=== PATIENT | male | born 1970 | race Caucasian/White ===

== ENCOUNTER 2021-05-18 06:26 | Emergency (ER) | payer SELFPAY ==
--- NOTE | 2021-05-18 06:55 | ER ---
Nurse's Notes [facility] Name: Jaya Castañeda Age: 50 yrs Sex: Male : 1970 Arrival Date: 05/18/2021 Time: 06:28 Bed Waiting Private MD: Diagnosis: Hordeolum externum left upper eyelid Presentation: 05/18 06:41 Chief complaint: Patient states: he was sent home from work this morning because they bb thought he had pink eye pt has no discharge the sclera is white there is small amount of edema to left upper lid along lid margin. Coronavirus screen: At this time, the client does not indicate any symptoms associated with coronavirus-19. Ebola Screen: No symptoms or risks identified at this time. Initial Sepsis Screen: Does the patient meet any 2 criteria? No. Patient's initial sepsis screen is negative. Does the patient have a suspected source of infection? No. Patient's initial sepsis screen is negative. Risk Assessment: Do you want to hurt yourself or someone else? Patient reports no desire to harm self or others. Onset of symptoms was May 17, 2021. 06:41 Method Of Arrival: Ambulatory 06:41 Acuity: MARY 5 bb 07:05 Note pt verbalized understanding of and agrees to plan of care discharge instructions bb given pt ambulated with steady gait to exit. Work note given. Triage Assessment: 06:43 General: Appears in no apparent distress. distressed, Behavior is. Pain: Denies pain. bb EENT: left upper lid margin slightly edematous. Neuro: Level of Consciousness is awake, alert, obeys commands, Oriented to person, place, time, situation. Cardiovascular: Capillary refill < 3 seconds Patient's skin is warm and dry. Respiratory: Respiratory effort is even, unlabored, Respiratory pattern is regular. GI: No signs and/or symptoms were reported involving the gastrointestinal system. Derm: Skin is pink, warm \T\ dry. Musculoskeletal: Circulation, motion, and sensation intact. Historical: - Allergies: 06:43 No Known Allergies; bb - Home Meds: 06:43 Lisinopril Oral [Active]; bb - PMHx: 06:43 Hypertensive disorder; bb - PSHx: 06:43 None; bb - Immunization history:: Adult Immunizations up to date, Client reports receiving the 2nd dose of the Covid vaccine. - Social history:: Smoking status: Patient denies any tobacco usage or history of. Patient uses alcohol, occasionally. Patient/guardian denies using street drugs. Screenin:46 Abuse screen: Denies threats or abuse. Nutritional screening: No deficits noted. bb Tuberculosis screening: No symptoms or risk factors identified. Fall Risk None identified. Assessment: 06:46 Reassessment: El SCOTT in triage for pt evaluation pt to be discharged home with bb work note. Pt verbalized understanding of and agrees to plan of care discharge instructions given pt ambulated with steady gait to exit. Vital Signs: 06:41 BP 144 / 94; Pulse 85; Resp 16 S; Temp 98.3(O); Pulse Ox 98% on R/A; Weight 98.43 kg bb (R); Height 5 ft. 6 in. (167.64 cm) (R); Pain 0/10; 06:41 Body Mass Index 35.02 (98.43 kg, 167.64 cm) bb ED Course: 06:28 Patient arrived in ED. wm 06:43 Triage completed. bb 06:43 Arm band placed on. bb 06:46 Patient has correct armband on for positive identification. bb 06:46 No provider procedures requiring assistance completed. Patient did not have IV access bb during this emergency room visit. 06:54 [facility]in [facility] jr8 06:54 Yassine Wolfe MD is Attending Physician. jr8 06:54 Isatu Segundo MD is Referral Physician. jr8 Administered Medications: No medications were administered Outcome: 06:55 Discharge ordered by . jr8 07:07 Discharged to home ambulatory. bb 07:07 Condition: stable 07:07 Discharge instructions given to patient, Instructed on discharge instructions, follow up and referral plans. Demonstrated understanding of instructions, follow-up care. 07:07 Patient left the ED. bb Signatures: Estella Guy RN RN bb El Rubin PA PA jr8 Yolanda Gardiner Corrections: (The following items were deleted from the chart) 07:07 06:46 Reassessment: El SCOTT in triage for pt evaluation pt to be discharged home bb with RX and work note. Pt verbalized understanding of and agrees to plan of care discharge instructions given pt ambulated with steady gait to exit. bb
--- NOTE | 2021-05-18 06:55 | EDPHYS ---
Physician Documentation [facility] Name: Jaya Castañeda Age: 50 yrs Sex: Male : 1970 Arrival Date: 05/18/2021 Time: 06:28 Bed Waiting Private MD: ED Physician Yassine Wolfe HPI: 05/18 06:59 This 50 yrs old Male presents to ER via Ambulatory with complaints of Eye jr8 Pain. 06:59 Onset: The symptoms/episode began/occurred acutely, today. Duration: the symptoms are jr8 continuous. Aggravated by nothing. Alleviated by nothing. Associated signs and symptoms: Pertinent positives: None. Patient wears glasses. Severity of symptoms: At their worst the symptoms were mild in the emergency department the symptoms are unchanged. The patient has not experienced similar symptoms in the past. The patient has not recently seen a physician. Patient stated that while getting ready for his morning class for work as [employer] had pulled him aside and asked about his left eye. Patient stated that he had not really felt anything until the head pointed out. Stated that they were worried he had pinkeye and was sent to the emergency room for further evaluation. Historical: - Allergies: 06:43 No Known Allergies; bb - Home Meds: 06:43 Lisinopril Oral [Active]; bb - PMHx: 06:43 Hypertensive disorder; bb - PSHx: 06:43 None; bb - Immunization history:: Adult Immunizations up to date, Client reports receiving the 2nd dose of the Covid vaccine. - Social history:: Smoking status: Patient denies any tobacco usage or history of. Patient uses alcohol, occasionally. Patient/guardian denies using street drugs. ROS: 06:59 Constitutional: Negative for fever, chills, and weight loss, Cardiovascular: Negative jr8 for chest pain, palpitations, and edema, Respiratory: Negative for shortness of breath, cough, wheezing, and pleuritic chest pain, Skin: Negative for injury, rash, and discoloration, Neuro: Negative for headache, weakness, numbness, tingling, and seizure. 06:59 Eyes: Positive for redness, swelling, of the left upper eyelid. 06:59 All other systems are negative. Exam: 06:59 Constitutional: This is a well developed, well nourished patient who is awake, alert, jr8 and in no acute distress. Head/Face: Normocephalic, atraumatic. ENT: Nares patent. No nasal discharge, no septal abnormalities noted. Tympanic membranes are normal and external auditory canals are clear. Oropharynx with no redness, swelling, or masses, exudates, or evidence of obstruction, uvula midline. Mucous membranes moist. Cardiovascular: Regular rate and rhythm with a normal S1 and S2. No gallops, murmurs, or rubs. Normal PMI, no JVD. No pulse deficits. Respiratory: Lungs have equal breath sounds bilaterally, clear to auscultation and percussion. No rales, rhonchi or wheezes noted. No increased work of breathing, no retractions or nasal flaring. Skin: Warm, dry with normal turgor. Normal color with no rashes, no lesions, and no evidence of cellulitis. MS/ Extremity: Pulses equal, no cyanosis. Neurovascular intact. Full, normal range of motion. Neuro: Awake and alert, GCS 15, oriented to person, place, time, and situation. Motor strength 5/5 in all extremities. Sensory grossly intact. 06:59 Eyes: Periorbital structures: appear normal, Pupils: equal, round, and reactive to light and accomodation, Extraocular movements: intact throughout, Conjunctiva: normal, Corneas: are normal, Sclera: no appreciated abnormality, Lids and lashes: stye, on the left lid, Examination of the other eye reveals no obvious gross abnormality. Vital Signs: 06:41 BP 144 / 94; Pulse 85; Resp 16 S; Temp 98.3(O); Pulse Ox 98% on R/A; Weight 98.43 kg bb (R); Height 5 ft. 6 in. (167.64 cm) (R); Pain 0/10; 06:41 Body Mass Index 35.02 (98.43 kg, 167.64 cm) bb MDM: 06:54 Data reviewed: vital signs, nurses notes, and as a result, I will discharge patient. brown Data interpreted: Pulse oximetry: on room air is 98 %. Interpretation: normal. Counseling: I had a detailed discussion with the patient and/or guardian regarding: the historical points, exam findings, and any diagnostic results supporting the discharge/admit diagnosis, the need for outpatient follow up, an opthalmologist, to return to the emergency department if symptoms worsen or persist or if there are any questions or concerns that arise at home. 06:55 Patient medically screened. jr8 Administered Medications: No medications were administered Disposition Summary: 05/18/21 06:55 Discharge Ordered Location: Home jr8 Problem: new jr8 Symptoms: have improved jr8 Condition: Stable jr8 Diagnosis - Hordeolum externum left upper eyelid jr8 Followup: jr8 - With: Isatu Segundo MD - When: As needed - Reason: Recheck today's complaints, Continuance of care, Re-evaluation by your physician Discharge Instructions: - Discharge Summary Sheet jr8 - Stye jr8 Forms: - Medication Reconciliation Form jr8 - Thank You Letter jr8 - Antibiotic Education jr8 - Work release form jr8 - Prescription Opioid Use jr8 Addendum: 05/19/2021 19:05 Co-signature as Attending Physician, Yassine Wolfe MD. p Signatures: Yassine Wolfe MD MD pkl Ballard, Brenda, RN RN El Doherty PA PA jr8
[2021-05-18 07:17] VITALS: BP 144/94; TEMP 98.3; O2SAT 98
== END 2021-05-18 07:07 | disposition home or self-care (01) ==
LOC: ER 06:26
DX: H00.014 Hordeolum externum left upper eyelid (principal); I10 Essential (primary) hypertension
CPT/HCPCS: 99281

== ENCOUNTER 2022-04-02 09:18 | Emergency (ER) | payer OTHER, SELFPAY ==
[2022-04-02] MEDS ORDERED: NA CHLORIDE 0.9% 1,000 ML ONE (09:38)
[2022-04-02 09:43] LABS: Absolute Lymphocytes (CBC) 1.6 K/uL (0.7-4.9); Hematocrit 40.2 % (39.6-49.0); Lymphocytes % 20.9 % (15.3-44.8); MPV 6.9 fL (7.6-11.3); RBC Red Blood Cell Count 4.54 M/uL (4.33-5.43)
[2022-04-02 09:45] LABS: Protime INR 0.95
[2022-04-02 09:55] LABS: Urine Blood Trace-intact (Negative); Urine Glucose Negative (Negative); Urine Protein Negative (Negative)
[2022-04-02 10:02] LABS: ALT/SGPT 30 U/L (12-78); AST/SGOT 16 U/L (15-37); Albumin 3.7 g/dL (3.4-5.0); Alkaline Phosphatase 96 U/L (45-117); BUN Blood Urea Nitrogen 17 mg/dL (7-18); Bicarbonate 23 mmol/L (21-32); Bilirubin Total 0.2 mg/dL (0.2-1.0); Glomerular Filtration Rate 106 ml/min (=/>90); Glucose Level 125 mg/dL (74-106); Magnesium 1.9 mg/dL (1.8-2.4); NT PRO-BNP 47 pg/mL (<125); Potassium 3.9 mmol/L (3.5-5.1); Protein, Total 7.4 g/dL (6.4-8.2); Sodium Level 137 mmol/L (136-145)
[2022-04-02 10:09] LABS: Bilirubin Direct < 0.1 mg/dL (0-0.2); Troponin High Sensitivity < 3.0 pg/mL (<58.9)
--- NOTE | 2022-04-02 10:14 | RAD REPORT ---
EXAM DESCRIPTION: RAD - Chest Single View - 04/02/2022 9:49 am CLINICAL HISTORY: COUGH COMPARISON: Portable December 2013 TECHNIQUE: AP portable chest image was obtained 04/02/2022 9:49 am . FINDINGS: No focal lung parenchymal process. Under penetrated technique and prominent overlying soft tissues accentuate all chest findings. Minimal interstitial edema or infiltrate could be masked. Hea rt and vasculature are normal. No measurable pleural effusion and no pneumothorax. No acute bony abno rmality seen. No acute aortic findings suspected. IMPRESSION: No focal lung parenchymal process seen. Prominent baseline interstitial pattern could mask early interstitial edema or infiltrate.
--- NOTE | 2022-04-02 10:29 | ER ---
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 the pt reported that he had the same feeling yesterday. denies pain. 12 lead was normal sinus. 18 G started to his left AC and LR was started. his blood pressure was elevated at 160/100 and we gave a nitro at 0903.". Coronavirus screen: At this time, the client does not indicate any symptoms associated with coronavirus-19. Ebola Screen: No symptoms or risks identified at this time. Initial Sepsis Screen: Does the patient meet any 2 criteria? No. Patient's initial sepsis screen is negative. Does the patient have a suspected source of infection? No. Patient's initial sepsis screen is negative. Risk Assessment: Do you want to hurt yourself or someone else? Patient reports no desire to harm self or others. Onset of symptoms was April 01, 2022. 09:21 Method Of Arrival: EMS: [facility] jd3 09:21 Acuity: MARY 3 jd3 Historical: - Allergies: 09:26 No Known Allergies; jd3 - Home Meds: 09:26 lisinopril Oral [Active]; jd3 - PMHx: 09:26 Hypertensive disorder; jd3 - PSHx: 09:26 right hand; jd3 - Immunization history:: Adult Immunizations up to date, Client reports receiving the 2nd dose of the Covid vaccine. - Social history:: Smoking status: Patient reports the use of cigarette tobacco products, denies chronic smoking, but will smoke occasionally. - Family history:: not pertinent. Screenin:29 Abuse screen: Denies threats or abuse. Nutritional screening: No deficits noted. jd3 Tuberculosis screening: No symptoms or risk factors identified. Fall Risk Ambulatory Aid- None/Bed Rest/Nurse Assist (0 pts). Gait- Normal/Bed Rest/Wheelchair (0 pts) Mental Status- Oriented to own ability (0 pts). Total Laws Fall Scale indicates No Risk (0-24 pts). Assessment: 09:27 General: Appears in no apparent distress. comfortable, Behavior is calm, cooperative, jd3 appropriate for age. Pain: Denies pain. Neuro: Arrington Agitation-Sedation Scale (RASS): 0 - Alert and Calm Level of Consciousness is awake, alert, obeys commands, Oriented to person, place, time, situation, Reports dizziness, since yesterday weakness general weakness since yesterday. Cardiovascular: Heart tones present Capillary refill < 3 seconds Patient's skin is warm and dry. Rhythm is regular. Respiratory: Airway is patent Respiratory effort is even, unlabored, Respiratory pattern is regular, symmetrical, Breath sounds are clear bilaterally. Denies cough, shortness of breath. GI: Reports nausea, Patient currently denies abdominal pain. : No signs and/or symptoms were reported regarding the genitourinary system. EENT: No signs and/or symptoms were reported regarding the EENT system. Derm: Skin is intact, Skin is dry, Skin is normal, Skin temperature is warm. Musculoskeletal: Circulation, motion, and sensation intact. Range of motion: intact in all extremities. 10:20 Reassessment: Patient appears in no apparent distress at this time. Patient and/or jd3 family updated on plan of care and expected duration. Pain level reassessed. Patient is alert, oriented x 3, equal unlabored respirations, skin warm/dry/pink. 11:18 Reassessment: Patient appears in no apparent distress at this time. Patient and/or jd3 family updated on plan of care and expected duration. Pain level reassessed. Patient is alert, oriented x 3, equal unlabored respirations, skin warm/dry/pink. Patient states feeling better. Vital Signs: 09:26 BP 143 / 69; Pulse 101; Resp 17 S; Temp 98.2(TE); Pulse Ox 99% on R/A; Weight 97.52 kg jd3 (R); Height 5 ft. 5 in. (165.10 cm) (R); Pain 0/10; 09:49 BP 119 / 89 Standing; Pulse 100; jd3 09:49 BP 139 / 92 Sitting; Pulse 90; jd3 09:49 BP 131 / 86 Supine; Pulse 94; jd3 11:19 BP 111 / 80; Pulse 90; Resp 16 S; Pulse Ox 99% on R/A; jd3 09:26 Body Mass Index 35.78 (97.52 kg, 165.10 cm) jd3 ED Course: 09:20 Patient arrived in ED. jd3 09:20 Yong Pearson, RN is Primary Nurse. jd3 09:21 Jamar Montgomery MD is Attending Physician. kina 09:26 Triage completed. jd3 09:27 Arm band placed on. EKG completed in triage. Results shown to MD. jd3 09:27 EKG done, by ED staff, reviewed by Jamar Montgomery MD. em1 09:29 Patient has correct armband on for positive identification. Bed in low position. Call jd3 light in reach. Side rails up X2. Client placed on continuous cardiac and pulse oximetry monitoring. NIBP monitoring applied. lumber sticker on. Pulse ox on. NIBP on. 09:29 Maintain EMS IV. Dressing intact. Good blood return noted. Site clean \\T\\ dry. Gauge \\T\\ alysia 3 site: 18 G left AC. 09:33 Troponin HS Sent. mb7 09:33 LFT's Sent. mb7 09:33 CBC with Diff Sent. mb7 09:33 NT PRO-BNP Sent. mb7 09:33 Magnesium Sent. mb7 09:33 PT-INR Sent. mb7 09:34 Basic Metabolic Panel Sent. mb7 09:51 XRAY Chest (1 view) In Process Unspecified. EDMS 10:27 Xavier Rachel MD is Referral Physician. kina 11:18 No provider procedures requiring assistance completed. IV discontinued, intact, jd3 bleeding controlled, No redness/swelling at site. Pressure dressing applied. Administered Medications: 09:34 Drug: NS 0.9% 1000 ml Route: IV; Rate: 125 ml/hr; Site: left antecubital; jd3 11:20 Follow up: Response: No adverse reaction; IV Status: Order to discontinue infusion; pt jd3 discharged Medication: 09:29 VIS not applicable for this client. jd3 Intake: Outcome: 10:28 Discharge ordered by . kina 11:19 Discharged to home ambulatory, with friend. jd3 11:19 Condition: stable 11:19 Discharge instructions given to patient, Instructed on discharge instructions, follow up and referral plans. Demonstrated understanding of instructions, follow-up care. 11:20 Patient left the ED. jd3 Signatures: Dispatcher [employer] EDMS Ulises, Jamar, MD MD kina Roman, Samir em1 Yong Pearson RN RN jd3 Josie Shannon 7
--- NOTE | 2022-04-02 10:29 | EDPHYS ---
Physician Documentation [facility] Name: Jaya Castañeda Age: 51 yrs Sex: Male : 1970 Arrival Date: 04/02/2022 Time: : Bed 7 Private MD: ED Physician Jamar Montgomery HPI: 04/02 09:49 This 51 yrs old Male presents to ER via EMS with complaints of dizziness and kina bp elevated. 09:49 The patient presents with dizziness, generalized weakness. Onset: The symptoms/episode kina began/occurred yesterday. Context: occurred at home, occurred while the patient was at rest, standing. Modifying factors: The symptoms are alleviated by nothing, the symptoms are aggravated by nothing. Associated signs and symptoms: The patient has no apparent associated signs or symptoms. Severity of symptoms: At their worst the symptoms were mild in the emergency department the symptoms are unchanged. Patient's baseline: Neuro:. The patient has experienced similar episodes in the past, several times. Historical: - Allergies: 09:26 No Known Allergies; jd3 - Home Meds: 09:26 lisinopril Oral [Active]; jd3 - PMHx: 09:26 Hypertensive disorder; jd3 - PSHx: 09:26 right hand; jd3 - Immunization history:: Adult Immunizations up to date, Client reports receiving the 2nd dose of the Covid vaccine. - Social history:: Smoking status: Patient reports the use of cigarette tobacco products, denies chronic smoking, but will smoke occasionally. - Family history:: not pertinent. ROS: 09:49 Constitutional: Negative for fever, chills, and weight loss, Eyes: Negative for injury, kina pain, redness, and discharge, ENT: Negative for injury, pain, and discharge, Neck: Negative for injury, pain, and swelling, Cardiovascular: Negative for chest pain, palpitations, and edema, Respiratory: Negative for shortness of breath, cough, wheezing, and pleuritic chest pain, Abdomen/GI: Negative for abdominal pain, nausea, vomiting, diarrhea, and constipation, Back: Negative for injury and pain, : Negative for injury, bleeding, discharge, and swelling, MS/Extremity: Negative for injury and deformity, Skin: Negative for injury, rash, and discoloration, Neuro: Negative for headache, weakness, numbness, tingling, and seizure, Psych: Negative for depression, anxiety, suicide ideation, homicidal ideation, and hallucinations, Allergy/Immunology: Negative for hives, rash, and allergies, Endocrine: Negative for neck swelling, polydipsia, polyuria, polyphagia, and marked weight changes, Hematologic/Lymphatic: Negative for swollen nodes, abnormal bleeding, and unusual bruising. Exam: 09:49 Constitutional: This is a well developed, well nourished patient who is awake, alert, kina and in no acute distress. Head/Face: Normocephalic, atraumatic. Eyes: Pupils equal round and reactive to light, extra-ocular motions intact. Lids and lashes normal. Conjunctiva and sclera are non-icteric and not injected. Cornea within normal limits. Periorbital areas with no swelling, redness, or edema. ENT: Nares patent. No nasal discharge, no septal abnormalities noted. Tympanic membranes are normal and external auditory canals are clear. Oropharynx with no redness, swelling, or masses, exudates, or evidence of obstruction, uvula midline. Mucous membranes moist. Neck: Trachea midline, no thyromegaly or masses palpated, and no cervical lymphadenopathy. Supple, full range of motion without nuchal rigidity, or vertebral point tenderness. No Meningismus. Chest/axilla: Normal chest wall appearance and motion. Nontender with no deformity. No lesions are appreciated. Cardiovascular: Regular rate and rhythm with a normal S1 and S2. No gallops, murmurs, or rubs. Normal PMI, no JVD. No pulse deficits. Respiratory: Lungs have equal breath sounds bilaterally, clear to auscultation and percussion. No rales, rhonchi or wheezes noted. No increased work of breathing, no retractions or nasal flaring. Abdomen/GI: Soft, non-tender, with normal bowel sounds. No distension or tympany. No guarding or rebound. No evidence of tenderness throughout. Back: No spinal tenderness. No costovertebral tenderness. Full range of motion. Male : Normal genitalia with no discharge or lesions. Skin: Warm, dry with normal turgor. Normal color with no rashes, no lesions, and no evidence of cellulitis. MS/ Extremity: Pulses equal, no cyanosis. Neurovascular intact. Full, normal range of motion. Neuro: Awake and alert, GCS 15, oriented to person, place, time, and situation. Cranial nerves II-XII grossly intact. Motor strength 5/5 in all extremities. Sensory grossly intact. Cerebellar exam normal. Normal gait. Psych: Awake, alert, with orientation to person, place and time. Behavior, mood, and affect are within normal limits. 09:49 ECG was reviewed by the Attending Physician. Vital Signs: 09:26 BP 143 / 69; Pulse 101; Resp 17 S; Temp 98.2(TE); Pulse Ox 99% on R/A; Weight 97.52 kg jd3 (R); Height 5 ft. 5 in. (165.10 cm) (R); Pain 0/10; 09:49 BP 119 / 89 Standing; Pulse 100; jd3 09:49 BP 139 / 92 Sitting; Pulse 90; jd3 09:49 BP 131 / 86 Supine; Pulse 94; jd3 11:19 BP 111 / 80; Pulse 90; Resp 16 S; Pulse Ox 99% on R/A; jd3 09:26 Body Mass Index 35.78 (97.52 kg, 165.10 cm) jd3 MDM: 09:21 Patient medically screened. kina 09:52 Differential diagnosis: cardiac arrhythmia, generalized weakness, hypovolemia, kina idiopathic dizziness, near-syncope. Data reviewed: vital signs, nurses notes, lab test result(s), EKG, radiologic studies, plain films. Data interpreted: color television console monitor: rate is 94 beats/min, rhythm is normal sinus rhythm, Pulse oximetry: on room air is 99 %. Test interpretation: by ED physician or midlevel provider: ECG, plain radiologic studies. Counseling: I had a detailed discussion with the patient and/or guardian regarding: the historical points, exam findings, and any diagnostic results supporting the discharge/admit diagnosis, lab results, radiology results. 04/02 09:21 Order name: Basic Metabolic Panel; Complete Time: 10: kina 04/02 09:21 Order name: CBC with Diff; Complete Time: : kina 04/02 09:21 Order name: LFT's; Complete Time: : kina 04/02 09:21 Order name: Magnesium; Complete Time: : kina 04/02 09:21 Order name: NT PRO-BNP; Complete Time: 10: kina 04/02 09:21 Order name: PT-INR; Complete Time: : [facility] 04/02 09:21 Order name: Troponin HS; Complete Time: : [facility] 04/02 09:21 Order name: XRAY Chest (1 view); Complete Time: : [facility] 04/02 09:21 Order name: EKG; Complete Time: : [facility] 04/02 09:21 Order name: Cardiac monitoring; Complete Time: : [facility] 04/02 09:21 Order name: EKG - Nurse/Tech; Complete Time: : [facility] 04/02 09:21 Order name: IV Saline Lock; Complete Time: : [facility] 04/02 09:55 Order name: Urine Dipstick-Ancillary; Complete Time: : EDMS 04/02 09:21 Order name: Labs collected and sent; Complete Time: : [facility] 04/02 09:21 Order name: O2 Per Protocol; Complete Time: : [facility] 04/02 09:21 Order name: O2 Sat Monitoring; Complete Time: : [facility] 04/02 09:23 Order name: Orthostatics; Complete Time: 09:49 [facility] 04/02 09:23 Order name: Urine Dipstick-Ancillary (obtain specimen); Complete Time: 09:49 [facility] EC:49 Rate is 85 beats/min. Rhythm is regular. QRS [place] is Normal. CT interval is normal. QRS kina interval is normal. QT interval is normal. No Q waves. T waves are Normal. No ST changes noted. Clinical impression: Normal ECG and No evidence of ischemia. Interpreted by me. Reviewed by me. Administered Medications: 09:34 Drug: NS 0.9% 1000 ml Route: IV; Rate: 125 ml/hr; Site: left antecubital; jd3 11:20 Follow up: Response: No adverse reaction; IV Status: Order to discontinue infusion; pt jd3 discharged Disposition Summary: 04/02/22 10:28 Discharge Ordered Location: Home kina Problem: new kina Symptoms: have improved kina Condition: Stable kina Diagnosis - Dizziness and giddiness kina - Essential (primary) hypertension kina Followup: kina - With: Private Physician - When: 2 - 3 days - Reason: Recheck today's complaints, Continuance of care, Re-evaluation by your physician Followup: kina - With: Xavier Rachel MD - When: 2 - 3 days - Reason: Recheck today's complaints, Re-evaluation by your physician Discharge Instructions: - Discharge Summary Sheet kina - Dizziness kina - Hypertension, Adult kina - Hypertension, Adult, [id number] kina - How to Take Your Blood Pressure, [id number] kina - Aspirin and Your Heart kina - Dizziness, [id number] kina - Managing Your Hypertension kina Forms: - Medication Reconciliation Form kina - Thank You Letter kina - Antibiotic Education kina - Prescription Opioid Use kina Signatures: Dispatcher [employer] EDJamar Mathis MD MD cha Davies, Jonathon RN RN jd3
[2022-04-02 11:27] VITALS: TEMP 98.2; O2SAT 99
[2022-04-02 11:30] VITALS: BP 111/80
--- NOTE | 2022-04-04 07:28 | EKG ---
Test Date: 2022-04-02 Test Time: 09:21:20 Photographer Helper: VELIA MEASUREMENT RESULTS: Intervals: Rate: 85 WI: 136 QRSD: 94 QT: 354 QTc: 421 [place]: P: 48 WI: 136 QRS: -3 T: 28 INTERPRETIVE STATEMENTS: Normal sinus rhythm Incomplete right bundle branch block Borderline ECG Compared to ECG 06/23/2015 09:14:17 No significant changes Electronically Signed On 04-04-22 07:20:00 CDT by Xavier Rachel
== END 2022-04-02 11:20 | disposition home or self-care (01) ==
LOC: ER 09:18
DX: R42 Dizziness and giddiness (principal); I10 Essential (primary) hypertension; Z72.0 Tobacco use
CPT/HCPCS: 36415; 71045; 80048; 80076; 81003; 83735; 83880; 84484; 85025; 85610; 93005; 96360; 96361; 99284; J7030

== ENCOUNTER 2022-04-08 20:46 | Emergency (ER) | payer OTHER, SELFPAY ==
[2022-04-09 00:37] LABS: Protime INR 0.94
[2022-04-09 00:38] LABS: Hematocrit 42.6 % (39.6-49.0); Lymphocytes % 30.3 % (15.3-44.8); MPV 7.4 fL (7.6-11.3); RBC Red Blood Cell Count 4.78 M/uL (4.33-5.43)
[2022-04-09 00:52] LABS: ALT/SGPT 41 U/L (12-78); AST/SGOT 18 U/L (15-37); Albumin 4.2 g/dL (3.4-5.0); Alkaline Phosphatase 122 U/L (45-117); BUN Blood Urea Nitrogen 15 mg/dL (7-18); Bicarbonate 26 mmol/L (21-32); Bilirubin Total 0.2 mg/dL (0.2-1.0); Glomerular Filtration Rate 101 ml/min (=/>90); Glucose Level 123 mg/dL (74-106); Magnesium 2.3 mg/dL (1.8-2.4); Potassium 3.9 mmol/L (3.5-5.1); Protein, Total 8.4 g/dL (6.4-8.2); Sodium Level 138 mmol/L (136-145)
[2022-04-09 01:02] LABS: Bilirubin Direct < 0.1 mg/dL (0-0.2); Troponin High Sensitivity < 3.0 pg/mL (<58.9)
--- NOTE | 2022-04-09 01:52 | ER ---
Nurse's Notes [facility] Name: Jyaa Castañeda Age: 51 yrs Sex: Male : 1970 Arrival Date: 04/08/2022 Time: 20:48 Bed 20 Private MD: Diagnosis: Dizziness and giddiness;Nausea;Headache;Hypertensive heart disease without heart failure Presentation: 04/08 22:15 Chief complaint: Patient states: "I had real bad pressure in my head and I was vc1 nauseous.". Coronavirus screen: Vaccine status: Patient reports receiving the 2nd dose of the covid vaccine. Moderna cough unrelated to allergies, headache, nausea, Client presents with at least one sign or symptom that may indicate coronavirus-19. Standard/surgical mask placed on the client. Provider contacted for isolation considerations. Ebola Screen: No symptoms or risks identified at this time. Initial Sepsis Screen: Does the patient meet any 2 criteria? No. Patient's initial sepsis screen is negative. Does the patient have a suspected source of infection? No. Patient's initial sepsis screen is negative. Risk Assessment: Do you want to hurt yourself or someone else? Patient reports no desire to harm self or others. Onset of symptoms is unknown. 22:15 Method Of Arrival: Ambulatory vc1 22:15 Acuity: MARY 4 vc1 Triage Assessment: 22:18 Headache History: Denies prior headaches. General: Appears in no apparent distress. vc1 uncomfortable, Behavior is calm, cooperative, appropriate for age. Pain: Denies pain. Pain currently is 0 out of 10 on a pain scale. Pain began 2-3 days ago. Also complains of nausea. EENT: No deficits noted. Neuro: Level of Consciousness is awake, alert, obeys commands, Oriented to person, place, time, situation, Appropriate for age Moves all extremities. Gait is steady, Speech is normal, Facial symmetry appears normal, Reports "pressure in head". Cardiovascular: No deficits noted. Respiratory: Airway is patent Respiratory effort is even, unlabored, Respiratory pattern is regular, symmetrical. GI: No signs and/or symptoms were reported involving the gastrointestinal system. : No signs and/or symptoms were reported regarding the genitourinary system. Derm: Skin is intact, is healthy with good turgor, Skin temperature is warm. Musculoskeletal: Circulation, motion, and sensation intact. Range of motion: intact in all extremities. Historical: - Allergies: 22:18 No Known Allergies; vc1 - Home Meds: 22:18 lisinopril Oral [Active]; vc1 - PMHx: 22:18 Hypertensive disorder; vc1 - PSHx: 22:18 right hand; vc1 - Immunization history:: Adult Immunizations up to date, Client reports receiving the 2nd dose of the Covid vaccine. - Social history:: Smoking status: Patient reports the use of cigarette tobacco products, denies chronic smoking, but will smoke occasionally. Screenin:44 Abuse screen: Denies threats or abuse. Nutritional screening: No deficits noted. kl Tuberculosis screening: No symptoms or risk factors identified. Fall Risk None identified. Assessment: 23:42 General: Appears in no apparent distress. well groomed, well developed, well nourished, kl Behavior is calm, cooperative. Pain: Denies pain. Neuro: No deficits noted. Reports dizziness, since off and on since Saturday seen in the ER reports feeling imbalanced at times Pressure in head. Cardiovascular: No deficits noted. Respiratory: No deficits noted. GI: No deficits noted. : No deficits noted. EENT: No deficits noted. Derm: No deficits noted. Musculoskeletal: No deficits noted. Vital Signs: 22:15 BP 139 / 90; Pulse 85; Resp 17; Temp 98.1(O); Pulse Ox 100% on R/A; Weight 97.07 kg; vc1 Height 5 ft. 5 in. (165.10 cm); Pain 0/10; 22:20 BP 134 / 86; vc1 23:44 BP 164 / 102; Pulse 78; Resp 16; Pulse Ox 99% on R/A; kl 04/09 02:16 BP 135 / 68; Pulse 77; Resp 16; Temp 98; Pulse Ox 100% on R/A; Pain 0/10; kl 04/08 22:15 Body Mass Index 35.61 (97.07 kg, 165.10 cm) vc1 Vitals: 02:16 Cardiac Rhythm Assessment Regular. Joseph Coma Score: 02:16 Eye Response: spontaneous(4). Verbal Response: oriented(5). Motor Response: obeys kl commands(6). Total: 15. ED Course: 04/08 20:48 Patient arrived in ED. bp1 22:18 Triage completed. vc1 22:20 Arm band placed on right wrist. vc1 23:38 Jamar Yates PA is PHCP. cp 23:38 Yeyo Lee MD is Attending Physician. cp 23:59 XRAY Chest (1 view) Sent. kl 04/09 00:00 No apparent distress. kl 00:00 Inserted saline lock: 20 gauge in left forearm, using aseptic technique. Blood kl collected. 00:09 XRAY Chest (1 view) In Process Unspecified. EDMS 00:25 CT Head Brain wo Cont In Process Unspecified. EDMS 02:18 Patient has correct armband on for positive identification. kl 02:18 No provider procedures requiring assistance completed. IV discontinued, intact, kl bleeding controlled, No redness/swelling at site. Pressure dressing applied. Administered Medications: No medications were administered Medication: 02:18 VIS not applicable for this client. kl Outcome: 01:51 Discharge ordered by MD. cp 02:17 Discharged to home ambulatory. kl 02:17 Condition: good 02:17 Discharge instructions given to patient, Instructed on discharge instructions, follow up and referral plans. medication usage, Demonstrated understanding of instructions, follow-up care, medications, Prescriptions given X 2. 02:18 Patient left the ED. kl Signatures: Dispatcher [employer] EDPA Kat Lemus RN RN Jamar Rodriguez PA PA cp [place], Brittany bp1 [place], Vanessa, RN RN vc1
--- NOTE | 2022-04-09 01:52 | EDPHYS ---
Physician Documentation [facility] Name: Jaya Castañeda Age: 51 yrs Sex: Male : 1970 Arrival Date: 04/08/2022 Time: 20:48 Bed 20 Private MD: ED Physician Yeyo Lee HPI: 04/08 23:47 This 51 yrs old Male presents to ER via Ambulatory with complaints of cp Dizziness, Headache, Nausea. 23:47 The patient presents with dizziness, lightheadedness, feeling off balance. Onset: The cp symptoms/episode began/occurred last week. Context: just prior to the episode the patient experienced no apparent symptoms. Associated signs and symptoms: Pertinent positives: headache, dizziness, chest pressure, Pertinent negatives: focal weakness, near-syncope, numbness, syncope. Severity of symptoms: in the emergency department the symptoms have resolved. Patient's baseline: Neuro: alert and fully oriented, Motor: no deficits, Ambulation: walks without assistance, Speech: normal. Historical: - Allergies: 22:18 No Known Allergies; vc1 - Home Meds: 22:18 lisinopril Oral [Active]; vc1 - PMHx: 22:18 Hypertensive disorder; vc1 - PSHx: 22:18 right hand; vc1 - Immunization history:: Adult Immunizations up to date, Client reports receiving the 2nd dose of the Covid vaccine. - Social history:: Smoking status: Patient reports the use of cigarette tobacco products, denies chronic smoking, but will smoke occasionally. ROS: 23:50 Constitutional: Negative for body aches, chills, fever, poor PO intake. cp 23:50 Eyes: Negative for injury, pain, redness, and discharge. cp 23:50 Neck: Negative for pain with movement, pain at rest. 23:50 Cardiovascular: Positive for chest pain, Negative for edema, palpitations. 23:50 Respiratory: Negative for cough, shortness of breath, wheezing. 23:50 Abdomen/GI: Negative for abdominal pain, nausea, vomiting, and diarrhea. 23:50 Back: Negative for pain at rest, pain with movement. 23:50 : Negative for urinary symptoms. 23:50 Neuro: Positive for dizziness, headache, Negative for altered mental status, numbness, syncope, near syncope, weakness. 23:50 All other systems are negative. Exam: 23:55 Constitutional: The patient appears in no acute distress, alert, awake, cp non-diaphoretic, non-toxic, well developed, well nourished, overweight 23:55 Head/Face: Normocephalic, atraumatic. cp 23:55 Eyes: Periorbital structures: appear normal, Pupils: equal, round, and reactive to light and accomodation, Extraocular movements: intact throughout, Conjunctiva: normal, no exudate, no injection, Sclera: no appreciated abnormality, Lids and lashes: appear normal, bilaterally. 23:55 ENT: External ear(s): are unremarkable, Nose: is normal, Mouth: Lips: moist, Oral mucosa: pink and intact, moist, Posterior pharynx: Airway: no evidence of obstruction, patent. 23:55 Neck: ROM/movement: is normal, is supple, without pain, no range of motions limitations. 23:55 Chest/axilla: Inspection: normal, Palpation: is normal, no crepitus, no tenderness. 23:55 Cardiovascular: Rate: normal, Rhythm: regular, Heart sounds: murmur, not appreciated, Edema: is not appreciated, JVD: is not appreciated. 23:55 Respiratory: the patient does not display signs of respiratory distress, Respirations: normal, no use of accessory muscles, no retractions, labored breathing, is not present, Breath sounds: are clear throughout, no decreased breath sounds, no stridor, no wheezing. 23:55 Abdomen/GI: Exam negative for discomfort, distension, guarding, Inspection: abdomen appears normal. 23:55 Neuro: Orientation: to person, place \T\ time. Mentation: is normal, Cerebellar function: Romberg testing is negative, normal finger to nose testing, Motor: moves all fours, strength is normal, Sensation: is normal. 04/09 01:08 ECG was reviewed by the Attending Physician. cp Vital Signs: 04/08 22:15 BP 139 / 90; Pulse 85; Resp 17; Temp 98.1(O); Pulse Ox 100% on R/A; Weight 97.07 kg; vc1 Height 5 ft. 5 in. (165.10 cm); Pain 0/10; 22:20 BP 134 / 86; vc1 23:44 BP 164 / 102; Pulse 78; Resp 16; Pulse Ox 99% on R/A; 04/09 02:16 BP 135 / 68; Pulse 77; Resp 16; Temp 98; Pulse Ox 100% on R/A; Pain 0/10; 04/08 22:15 Body Mass Index 35.61 (97.07 kg, 165.10 cm) vc1 [place] Coma Score: 02:16 Eye Response: spontaneous(4). Verbal Response: oriented(5). Motor Response: obeys kl commands(6). Total: 15. MDM: 04/08 23:46 Patient medically screened. 04/09 01:50 Data reviewed: vital signs, nurses notes, lab test result(s), EKG, radiologic studies, cp CT scan, plain films. 01:50 Test interpretation: by ED physician or midlevel provider: ECG, plain radiologic cp studies. Counseling: I had a detailed discussion with the patient and/or guardian regarding: the historical points, exam findings, and any diagnostic results supporting the discharge/admit diagnosis, the presence of at least one elevated blood pressure reading (>120/80) during this emergency department visit, lab results, radiology results, the need for outpatient follow up, for definitive care, a family practitioner, to return to the emergency department if symptoms worsen or persist or if there are any questions or concerns that arise at home. Response to treatment: the patient's symptoms have markedly improved after treatment, and as a result, I will discharge patient. 04/08 23:45 Order name: Basic Metabolic Panel; Complete Time: 01:12 04/09 01:12 Interpretation: Normal except: GLUC 123. 04/08 23:45 Order name: CBC with Diff; Complete Time: 00:55 04/09 00:55 Interpretation: Normal except: WBC 9.9; PLT 393; MPV 7.4. 04/08 23:45 Order name: LFT's; Complete Time: 01:12 04/09 01:13 Interpretation: Normal except: ALK 122; TP 8.4; GLOB 4.2; A/G 1.0. 04/08 23:45 Order name: Magnesium; Complete Time: 01:12 04/08 23:45 Order name: PT-INR; Complete Time: 00:55 04/08 23:45 Order name: Troponin HS; Complete Time: 01:12 04/08 23:45 Order name: Orthostatics cp 04/08 23:45 Order name: XRAY Chest (1 view) 04/08 23:45 Order name: EKG; Complete Time: 23:46 cp 04/08 23:45 Order name: Cardiac monitoring; Complete Time: 23:59 cp 04/08 23:45 Order name: EKG - Nurse/Tech 04/08 23:45 Order name: IV Saline Lock; Complete Time: 23:59 cp 04/08 23:45 Order name: Labs collected and sent; Complete Time: 23:59 cp 04/08 23:45 Order name: CT Head Brain wo Cont cp 04/08 23:45 Order name: O2 Per Protocol 04/08 23:45 Order name: O2 Sat Monitoring; Complete Time: 23:59 cp EC:08 Rate is 70 beats/min. Rhythm is regular. [place] interval is normal. QRS interval is normal. cp QT interval is normal. T waves are Inverted in lead aVR. Interpreted by me. Reviewed by me. Administered Medications: No medications were administered Disposition: 07:57 Co-signature as Attending Physician, Yeyo Lee MD. [email or web address] Disposition Summary: 04/09/22 01:51 Discharge Ordered Location: Home cp Problem: an ongoing problem cp Symptoms: have improved cp Condition: Stable cp Diagnosis - Dizziness and giddiness cp - Nausea cp - Headache cp - Hypertensive heart disease without heart failure cp Followup: cp - With: Private Physician - When: 1 - 2 days - Reason: Recheck today's complaints Discharge Instructions: - Discharge Summary Sheet cp - Dizziness cp - General Headache Without Cause cp - Hypertension, Adult cp - Nausea, Adult cp - How to Take Your Blood Pressure, [id number] cp - Aspirin and Your Heart cp - How to Take Your Blood Pressure cp Forms: - Medication Reconciliation Form cp - Thank You Letter cp - Antibiotic Education cp - Prescription Opioid Use cp - Work release form mw2 Prescriptions: - Meclizine 25 mg Oral Tablet - take 1 tablet by ORAL route every 8 hours As needed; 30 tablet; Refills: 0, cp Product Selection Permitted - Zofran 4 mg Oral Tablet - take 1 tablet by ORAL route every 12 hours As needed; 20 tablet; Refills: 0, cp Product Selection Permitted Signatures: Dispatcher [facility] Jamar Yates PA PA cp Holmes, Maurice, MD MD [email or web address] CalcHalima jackson, GEORGE RN vc1
[2022-04-09 03:40] VITALS: BP 135/68; TEMP 98; O2SAT 100
--- NOTE | 2022-04-09 14:39 | EKG ---
Test Date: 2022-04-09 Test Time: 00:58:18 Publications Writer: TORIBIO MEASUREMENT RESULTS: Intervals: Rate: 70 PA: 140 QRSD: 96 QT: 374 QTc: 403 [place]: P: 60 PA: 140 QRS: 8 T: 31 INTERPRETIVE STATEMENTS: Normal sinus rhythm Normal ECG Compared to ECG 04/02/2022 09:21:20 Incomplete right bundle-branch block no longer present Electronically Signed On 04-09-22 14:37:37 CDT by Willy Miles
--- NOTE | 2022-04-09 20:14 | RAD REPORT ---
EXAM DESCRIPTION: RAD - Chest Single View - 04/09/2022 12:06 am CLINICAL HISTORY: 51 years Male, dizziness COMPARISON: None. TECHNIQUE: Single portable x-ray view of the chest performed on 04/08/2022 at 11:59 PM FINDINGS: The lungs are well expanded and are clear. There is no evidence of a pneumothorax. The cardiac silhouette is normal in size and configuration. The mediastinal contours are normal. No acute osseous abnormality is identified. No acute soft tissue abnormalities are seen. Lines and tubes: None. Free air: None IMPRESSION: No evidence of acute intrathoracic disease. Electronically signed by: Ninoska Banda DO 04/09/2022 3:09 AM CDT Due to temporary technical issues with the PACS/Fluency reporting system, reports are being signed by the in house radiologists without. review as a courtesy to insure prompt reporting. The interpreting radiologist is fully responsible for the content of the report.
--- NOTE | 2022-04-09 20:16 | RAD REPORT ---
EXAM DESCRIPTION: CT - Head Brain Wo Cont - 04/09/2022 6:22 am CLINICAL HISTORY: 51 years Male, Dizziness, non-specific TECHNIQUE: Helical CT axial images are obtained from the base of skull through the vertex without IV contrast. Multiplanar reconstruction. This exam was performed according to our departmental dose-opt imization program, which includes automated exposure control, adjustment of the mA and/or kV accordin g to patient size and/or use of iterative reconstruction technique. COMPARISON: None. FINDINGS: BRAIN: No infarcts. No parenchymal hemorrhage, intra-axial mass, mass effect, or midline s hift. No abnormal extra-axial fluid collections. VENTRICLES: Ventricles are normal in size and configuration. No hydrocephalus. CALVARIUM: Bone windows show no skull fracture or calvarial lesions. PARANASAL SINUSES AND MASTOIDS: Moderate bilateral ethmoid sinus disease and mild bilateral sphenoi d sinus disease. Remaining visualized paranasal sinuses are clear. Mastoid air cells are clear. IMPRESSION: 1. Negative noncontrast CT examination of brain. 2. Moderate bilateral ethmoid and mild bilateral sphenoid sinus disease. Electronically signed by: Farhad Weathers MD 04/09/2022 12:55 AM CDT Due to temporary technical issues with the PACS/Fluency reporting system, reports are being signed by the in house radiologists without. review as a courtesy to insure prompt reporting. The interpreting radiologist is fully responsible for the content of the report.
== END 2022-04-09 02:18 | disposition home or self-care (01) ==
LOC: ER 20:46
DX: R51.9 Headache, unspecified (principal); I11.9 Hypertensive heart disease without heart failure; R11.0 Nausea; I10 Essential (primary) hypertension; F17.210 Nicotine dependence, cigarettes, uncomplicated
CPT/HCPCS: 36415; 70450; 71045; 80048; 80076; 83735; 84484; 85025; 85610; 93005; 99284